=== PATIENT | male | born 1955 | race Caucasian/White ===

== ENCOUNTER → 2016-08-03 | Outpatient (CLI) | payer OTHER ==
[~2016-08-03] MED LIST: ASPI-13 PO; DUTA0.5C PO; FINA1TAB16 PO; FINA5TAB4 PO; GADOBUTROL 10 MMOL/10 ML PFS ONE; PARO40TA45 PO; ROSU5TAB PO; [UNRECOGNIZED DRUG - CODE] PO
== END | disposition home or self-care (01) ==
LOC: CFH 14:31
PROVIDERS: ATTEND Specialist
DX: G93.89 Other specified disorders of brain (principal); R90.82 White matter disease, unspecified; G31.9 Degenerative disease of nervous system, unspecified; H70.93 Unspecified mastoiditis, bilateral
CPT/HCPCS: 70553; A9585

== ENCOUNTER 2018-05-03 11:25 | Day surgery (SDC) | payer MEDICARE, OTHER ==
[~2018-05-03] VITALS: Ht 175.3 cm; Wt 104.3 kg
[~2018-05-03 11:25] MED LIST changes: -GADOBUTROL 10 MMOL/10 ML PFS ONE; -PARO40TA45 PO; +PARO40TA61 PO
[2018-05-03] MEDS ORDERED: SODIUM CHLORIDE 0.9% 1,000 ML IV SCH (11:54)
[2018-05-03 12:25] VITALS: BP 123/74
[2018-05-03] MEDS ORDERED: SODIUM BICARBONATE 4.0%, 5ML ONE (13:04)
[2018-05-03] MEDS ORDERED: LIDOCAINE-MPF 1%, 5ML ONE (13:04)
[2018-05-03 14:38] LABS: GLUCOSE, CSF 53 mg/dL (40-80); TOTAL PROTEIN,CSF 36 mg/dL (15-45)
== END 2018-05-03 17:05 | disposition home or self-care (01) ==
LOC: OUT 11:25
PROVIDERS: ATTEND Physician Assistant
DX: G35 Multiple sclerosis (principal); I10 Essential (primary) hypertension; J45.909 Unspecified asthma, uncomplicated
CPT/HCPCS: 36415; 62270; 77003; 82040; 82042; 82784; 82945; 83873; 84157; 85048; 86645; 86695; 86696; 86762; 86777; 86778; 89051; J7030

== ENCOUNTER 2018-08-31 07:57 | Inpatient (IN) | payer MEDICARE, OTHER ==
[~2018-08-31] VITALS: Ht 175.3 cm; Wt 100.2 kg
--- NOTE | 2018-08-31 08:13 | NUR ---
CONTACT WITH PT, 63 YR OLD MALE HERE WITH C/O "MOSTLY A BLADDER INFECTION, I HAD IT TREATED ONCE, BUT IT CAME RIGHT BACK, I HAVE LOST MY ABILITY TO WALK. I HAVE NOTICED IN THE PAST THAT WITH THE MS, WHEN YOU GET AN INFECTION, IT JUST CASCADES" DIDI BLAKE AT BEDSIDE TO JOSE PT
[2018-08-31] MEDS ORDERED: SODIUM CHLORIDE 0.9% 1,000ML IVBOLUS ONE (08:30)
[2018-08-31] MEDS ORDERED: SODIUM CHLORIDE FLUSH 10ML SYR IVF ONE (08:30)
[2018-08-31] MEDS ORDERED: ACETAMINOPHEN 500 MG TABLET PO ONE ×2 (08:30→21:00)
[2018-08-31] MEDS ORDERED: DILT60TA30 PO (08:39)
[2018-08-31 08:57] LABS: BASOPHILS # (AUTO) 0.02 x10^3/uL (0-0.1); BASOPHILS % (AUTO) 0 % (0-1); EOSINOPHILS % (AUTO) 0 % (1-7); LYMPHOCYTES # (AUTO) 0.85 x10^3/uL (1-3.4); LYMPHOCYTES % (AUTO) 11 % (22-44); MD NO; MEAN CORPUSCULAR HEMOGLOBIN 32.9 pg (27.5-34.5); MEAN CORPUSCULAR HGB CONC 33.9 g/dL (33.2-36.2); MEAN CORPUSCULAR VOLUME 97.1 fL (81-97); MEAN PLATELET VOLUME 8.2 fL (7.4-10.4); MONOCYTES # (AUTO) 0.66 x10^3/uL (0.2-0.8); MONOCYTES % (AUTO) 8 % (2-9); NEUTROPHILS # (AUTO) 6.39 x10^3/uL (1.8-6.8); NEUTROPHILS % (AUTO) 81 % (42-75); PLATELET COUNT 211 x10^3/uL (130-400); RED BLOOD COUNT 4.54 x10^6/uL (4.38-5.82); RED CELL DISTRIBUTION WIDTH 12.4 % (9.4-14.8)
[2018-08-31 09:09] LABS: ALANINE AMINOTRANSFERASE 23 U/L (12-78); ALBUMIN 4.2 g/dL (3.4-5.0); ANION GAP 9 mmol/L (5-15); CALCIUM 8.9 mg/dL (8.5-10.1); CHLORIDE 97 mmol/L (98-107); CREATININE 1.22 mg/dL (0.7-1.3)
[2018-08-31 09:11] LABS: ALKALINE PHOSPHATASE 82 U/L (45-117); BILIRUBIN,TOTAL 1.7 mg/dL (0.2-1.0); CREATINE KINASE, TOTAL 120 U/L (39-308); TOTAL PROTEIN 8.7 g/dL (6.4-8.2)
[2018-08-31] MEDS ORDERED: ACETAMINOPHEN 500 MG TABLET ONE (09:15)
--- NOTE | 2018-08-31 09:18 | NUR ---
HYATT CATH PLACED. PT MAYRA WELL. PT UPDATED ON POC. NS BOLUS INFUSING WITHOUT REDNESS/SWELLING. PT MEDICATED FOR TEMP ORDERED. PO FLUIDS AT BEDSIDE. NO OTHER NEEDS EXPRESSED AT THIS TIME.
[2018-08-31 09:30] LABS: CULTURE INDICATED? YES; MICROSCOPIC INDICATED
--- NOTE | 2018-08-31 09:50 | NUR ---
TASK RN: VS UPDATED IN CHART, IVF COMPLETED. RESULTS BACK, CHART UP FOR RECHECK. PATIENT SITTING COMFORTABLY IN [facility] AWAITING FURTHER ORDERS. NO ADDITIONAL NEEDS AT THIS TIME.
[2018-08-31] MEDS ORDERED: CEFTRIAXONE PMX 1GM/50ML 50 ML ONE (10:17)
--- NOTE | 2018-08-31 10:25 | NUR ---
DISCUSSED IV FLUIDS, ABX WITH DIDI BLAKE. NO FURTHER IV FLUIDS AT THIS TIME. IV ABX INFUSING. BLOOD CULTURES X2 IN LAB PROCESSING, PINK [place]MBAND IN PLACE. PT DENIES "CHILLS" AT THIS TIME. SR PER MONITOR. AUTO BP AND PULSE OX IN PLACE. DECLINED PO FLUIDS AT THIS TIME. HYATT TO DD. YELLOW CLOUDY URINE. NO NEEDS EXPRESSED AT THIS TIME.
[2018-08-31] MEDS ORDERED: CEFTRIAXONE PMX 1GM/50ML 50 ML IV ONE (10:30)
--- NOTE | 2018-08-31 11:34 | NUR ---
PT ASSISTED TO HOSPITAL BED. PT AWARE OF WAITING FOR ROOM ASSIGNMENT. HYATT TO DD. NO NEEDS EXPRESSED AT THIS TIME. CONT TO MONITOR.
[2018-08-31] MEDS ORDERED: ONDANSETRON 2MG/ML, 2ML IVPush PRN (13:30)
[2018-08-31] MEDS ORDERED: hydrALAzine 20 MG/ML, 1ML IVPush PRN (13:30)
[2018-08-31] MEDS ORDERED: ACETAMINOPHEN 325 MG TABLET PO PRN (13:30)
[2018-08-31] MEDS ORDERED: GUAIFENESIN/COD200MG-20MG/10ML LIQUID PO PRN (13:30)
[2018-08-31] MEDS ORDERED: NITROGLYCERIN 0.4 MG BOTTLE (25 TABS) SL PRN (13:30)
[2018-08-31] MEDS ORDERED: KETOROLAC 30 MG/1 ML IV PRN (13:30)
[2018-08-31] MEDS ORDERED: TRAZODONE 50MG TABLET PO PRN (13:30)
--- NOTE | 2018-08-31 13:46 | NUR ---
PT SITTING UP ON BED. NO ACUTE DISTRESS NOTED. URINE LESS CLOUDY. GOOD UOP. PT TAKING PO FLUIDS PRN. NO NEEDS EXPRESSED AT THIS TIME.
--- NOTE | 2018-08-31 13:53 | NUR ---
IV FLUIDS REQUESTED FROM PHARMACY
[2018-08-31] MEDS ORDERED: ENOXAPARIN 40 MG/0.4 ML ONE (13:59)
[2018-08-31] MEDS ORDERED: POTASSIUM CHLORIDE 20 MEQ TAB.ER.PRT ONE (13:59)
[2018-08-31] MEDS: POTASSIUM CHLORIDE 20 MEQ TAB.ER.PRT PO SCH ×2 (14:12→20:39)
[2018-08-31] MEDS: ENOXAPARIN 40 MG/0.4 ML SQ SCH (14:12)
[2018-08-31] MEDS: POTASSIUM CHLORIDE 20 MEQ in LACTATED RINGERS 1,000 ML IV SCH (14:57)
--- NOTE | 2018-08-31 15:01 | NUR ---
IV FLUIDS INFUSING ORDERED. PT PROVIDED WITH MEAL TRAY. NO C/O OFFERED. NO NEEDS EXPRESSED AT THIS TIME.
--- NOTE | 2018-08-31 16:50 | NUR ---
PT DOZING INTERMITTENTLY, AROUSES EASILY. IV FLUIDS INFUSING WITHOUT REDNESS/SWELLING. PO FLUIDS AT BEDSIDE. NO NEEDS EXPRESSED AT THIS TIME.
--- NOTE | 2018-08-31 17:25 | NUR ---
Umu enriquez in [facility] - 08/31/18 at 1725 by MEENA ATTEMPT TO CALL REPORT, RN TO RETURN CALL.
--- NOTE | 2018-08-31 17:26 | NUR ---
ATTEMPT TO CALL REPORT, RN TO RETURN CALL.
[2018-08-31] MEDS ORDERED: ACETAMINOPHEN 325 MG TABLET ONE (17:31)
--- NOTE | 2018-08-31 17:35 | NUR ---
PT MOSTLY SLEEPING, AROUSES TO NAME/TOUCH. RECHECK OF PTS TEMP, ELEVATED. PT MEDICATED WITH TYLENOL ORDERED. PT AWARE OF ROOM ASSIGNMENT.
[2018-08-31] MEDS ORDERED: CYCLOBENZAPRINE 10 MG TABLET ONE (17:39)
[2018-08-31] MEDS: CYCLOBENZAPRINE 10 MG TABLET PO PRN (17:41)
--- NOTE | 2018-08-31 18:10 | NUR ---
REPORT TO DEIRDRE ROQUE, POC DISCUSSED.
[2018-08-31 18:38] VITALS: BP 121/75
[2018-08-31 20:31] VITALS: BP 121/66
[2018-08-31] MEDS: ATORVASTATIN 20 MG TABLET PO SCH (20:39)
[2018-09-01 00:33] VITALS: BP 107/70
[2018-09-01] MEDS: POTASSIUM CHLORIDE 20 MEQ in LACTATED RINGERS 1,000 ML IV SCH (03:05)
[2018-09-01 06:50] VITALS: BP 125/71
[2018-09-01 07:49] LABS: BASOPHILS # (AUTO) 0.02 x10^3/uL (0-0.1); BASOPHILS % (AUTO) 0 % (0-1); EOSINOPHILS # (AUTO) 0.01 x10^3/uL (0-0.4); EOSINOPHILS % (AUTO) 0 % (1-7); LYMPHOCYTES # (AUTO) 0.53 x10^3/uL (1-3.4); LYMPHOCYTES % (AUTO) 11 % (22-44); MD NO; MEAN CORPUSCULAR HEMOGLOBIN 32.6 pg (27.5-34.5); MEAN CORPUSCULAR HGB CONC 33.9 g/dL (33.2-36.2); MEAN CORPUSCULAR VOLUME 96.3 fL (81-97); MEAN PLATELET VOLUME 8.1 fL (7.4-10.4); MONOCYTES # (AUTO) 0.55 x10^3/uL (0.2-0.8); MONOCYTES % (AUTO) 11 % (2-9); NEUTROPHILS % (AUTO) 78 % (42-75); PLATELET COUNT 176 x10^3/uL (130-400); RED BLOOD COUNT 3.72 x10^6/uL (4.38-5.82); RED CELL DISTRIBUTION WIDTH 12.9 % (9.4-14.8)
[2018-09-01 07:59] LABS: ANION GAP 4 mmol/L (5-15); CALCIUM 8.4 mg/dL (8.5-10.1); CHLORIDE 103 mmol/L (98-107); CREATININE 0.78 mg/dL (0.7-1.3)
[2018-09-01] MEDS ORDERED: CEFTRIAXONE PMX 1GM/50ML 50 ML IV SCH (09:00)
[2018-09-01] MEDS: DILTIAZEM 60 MG TABLET PO SCH (09:29)
[2018-09-01] MEDS: CEFTRIAXONE PMX 2GM/50ML 50 ML IV SCH (09:30)
[2018-09-01] MEDS: DUTASTERIDE 0.5 MG CAPSULE PO SCH (09:30)
[2018-09-01] MEDS: TAMSULOSIN 0.4 MG CAP.ER.24H PO SCH (09:30)
[2018-09-01] MEDS: PAROXETINE 20 MG TABLET PO SCH (09:30)
[2018-09-01 12:20] VITALS: BP 128/69
[2018-09-01] MEDS: ENOXAPARIN 40 MG/0.4 ML SQ SCH (14:55)
[2018-09-01] MEDS: LACTATED RINGERS 1,000 ML IV SCH ×2 (14:55→23:04)
[2018-09-01] MEDS: CYCLOBENZAPRINE 10 MG TABLET PO PRN ×2 (14:57→23:03)
[2018-09-01 19:27] VITALS: BP 147/76
[2018-09-02 03:53] VITALS: BP 126/79
[2018-09-02] MEDS: morphine SULFATE 10 MG/ML, 1ML IVPush PRN ×5 (04:21→22:42)
[2018-09-02 05:58] LABS: BASOPHILS # (AUTO) 0.03 x10^3/uL (0-0.1); BASOPHILS % (AUTO) 1 % (0-1); EOSINOPHILS # (AUTO) 0.03 x10^3/uL (0-0.4); EOSINOPHILS % (AUTO) 1 % (1-7); LYMPHOCYTES # (AUTO) 1.01 x10^3/uL (1-3.4); LYMPHOCYTES % (AUTO) 18 % (22-44); MD NO; MEAN CORPUSCULAR HEMOGLOBIN 33.2 pg (27.5-34.5); MEAN CORPUSCULAR HGB CONC 33.7 g/dL (33.2-36.2); MEAN CORPUSCULAR VOLUME 98.4 fL (81-97); MEAN PLATELET VOLUME 8.8 fL (7.4-10.4); MONOCYTES # (AUTO) 0.81 x10^3/uL (0.2-0.8); MONOCYTES % (AUTO) 14 % (2-9); NEUTROPHILS # (AUTO) 3.86 x10^3/uL (1.8-6.8); NEUTROPHILS % (AUTO) 67 % (42-75); PLATELET COUNT 181 x10^3/uL (130-400); RED BLOOD COUNT 3.59 x10^6/uL (4.38-5.82); RED CELL DISTRIBUTION WIDTH 12.4 % (9.4-14.8)
[2018-09-02 06:06] LABS: CHLORIDE 102 mmol/L (98-107)
[2018-09-02 06:09] LABS: ANION GAP 7 mmol/L (5-15); CALCIUM 8.3 mg/dL (8.5-10.1); CREATININE 0.75 mg/dL (0.7-1.3)
[2018-09-02 08:10] VITALS: BP 123/73
[2018-09-02] MEDS: TAMSULOSIN 0.4 MG CAP.ER.24H PO SCH (08:44)
[2018-09-02] MEDS: DUTASTERIDE 0.5 MG CAPSULE PO SCH (08:44)
[2018-09-02] MEDS: DILTIAZEM 60 MG TABLET PO SCH (08:44)
[2018-09-02] MEDS: PAROXETINE 20 MG TABLET PO SCH (08:44)
[2018-09-02] MEDS: CEFTRIAXONE PMX 2GM/50ML 50 ML IV SCH (08:45)
[2018-09-02] MEDS: LACTATED RINGERS 1,000 ML IV SCH (08:45)
[2018-09-02] MEDS ORDERED: CYCLOBENZAPRINE 10 MG TABLET PO PRN (13:30)
[2018-09-02 14:12] VITALS: BP 117/65
[2018-09-02] MEDS: ENOXAPARIN 40 MG/0.4 ML SQ SCH (14:15)
[2018-09-02 21:22] VITALS: BP 125/72
[2018-09-02] MEDS: ATORVASTATIN 20 MG TABLET PO SCH (22:42)
[2018-09-03 02:22] VITALS: BP 158/88
[2018-09-03 03:58] VITALS: BP 110/67
[2018-09-03] MEDS: morphine SULFATE 10 MG/ML, 1ML IVPush PRN (04:00)
[2018-09-03 05:43] LABS: ANION GAP 4 mmol/L (5-15); CALCIUM 8.4 mg/dL (8.5-10.1); CHLORIDE 101 mmol/L (98-107); CREATININE 0.79 mg/dL (0.7-1.3)
[2018-09-03 09:00] VITALS: BP 116/72
[2018-09-03] MEDS ORDERED: CEFD300C37 PO (09:05)
[2018-09-03] MEDS ORDERED: OXYC5TAB3 PO (09:06)
[2018-09-03] MEDS ORDERED: ACET325T14 PO (09:06)
[2018-09-03] MEDS: POTASSIUM CHLORIDE 20 MEQ TAB.ER.PRT PO SCH ×2 (09:20→12:54)
[2018-09-03] MEDS: CEFTRIAXONE PMX 2GM/50ML 50 ML IV SCH (09:20)
[2018-09-03] MEDS: PAROXETINE 20 MG TABLET PO SCH (09:21)
[2018-09-03] MEDS: DILTIAZEM 60 MG TABLET PO SCH (09:21)
[2018-09-03] MEDS: TAMSULOSIN 0.4 MG CAP.ER.24H PO SCH (09:21)
[2018-09-03] MEDS: DUTASTERIDE 0.5 MG CAPSULE PO SCH (09:21)
[2018-09-03] MEDS ORDERED: LACTULOSE 20 GM/30 ML UDC PO PRN (09:30)
[2018-09-03] MEDS ORDERED: BISACODYL 10 MG SUPP PR PRN (09:30)
[2018-09-03] MEDS ORDERED: DOCUSATE 100 MG CAPSULE PO PRN (09:30)
[2018-09-03] MEDS ORDERED: MAGNESIUM HYDROXIDE 8%, 30ML UDC PO PRN (09:30)
[2018-09-03 12:33] VITALS: BP 112/71
[2018-09-03] MEDS ORDERED: OXYcodone IR 5MG TABLET PO PRN ×2 (13:00→13:08)
[2018-09-03] MEDS ORDERED: OXYcodone IR 5MG TABLET ONE (13:06)
[2018-09-03] MEDS: ENOXAPARIN 40 MG/0.4 ML SQ SCH (13:30)
[2018-09-03] MEDS ORDERED: SENNA/DOCUSATE TABLET PO SCH (21:00)
== END 2018-09-03 14:40 | DRG 871 ==
LOC: ED 08:58 → EDIP 10:23 → 4NOR 18:24
PROVIDERS: ADMIT Internal Medicine; ATTEND Internal Medicine
PROC: 0T9B70Z Drainage of Bladder with Drainage Device, Via Natural or Artificial Opening (ICD-10-PCS; principal; 2018-08-31)
DX: A41.51 Sepsis due to Escherichia coli [E. coli] (principal); N17.0 Acute kidney failure with tubular necrosis; E87.1 Hypo-osmolality and hyponatremia; N10 Acute pyelonephritis; E86.1 Hypovolemia; E78.5 Hyperlipidemia, unspecified; E87.6 Hypokalemia; N40.0 Benign prostatic hyperplasia without lower urinary tract symptoms; F12.90 Cannabis use, unspecified, uncomplicated; G35 Multiple sclerosis; E83.39 Other disorders of phosphorus metabolism; I10 Essential (primary) hypertension; R62.7 Adult failure to thrive; Z80.41 Family history of malignant neoplasm of ovary; Z82.49 Family history of ischemic heart disease and other diseases of the circulatory system; Z87.891 Personal history of nicotine dependence; Z91.041 Radiographic dye allergy status
CPT/HCPCS: 36415; 71045; 80048; 80053; 80307; 81001; 82140; 82550; 83605; 83735; 84100; 84145; 85025; 87040; 87077; 87086; 87186; 96361; 96365; G0378; J0696; J1650; J3480; J2270; J7030; J7120

== ENCOUNTER 2019-02-22 13:22 | Day surgery (SDC) | payer MEDICARE, OTHER ==
[~2019-02-22] VITALS: Ht 175.3 cm; Wt 99.5 kg
[~2019-02-22 13:22] MED LIST changes: +ACET325T14 PO; +CEFD300C37 PO; +DILT60TA30 PO; +OXYC5TAB3 PO
[2019-02-22] MEDS ORDERED: LACTATED RINGERS 1,000 ML IV SCH (13:50)
[2019-02-22 13:57] VITALS: BP 149/87
[2019-02-22] MEDS ORDERED: NITR100C PO (14:11)
[2019-02-22] MEDS ORDERED: CHOL500045 PO (14:12)
[2019-02-22] MEDS ORDERED: ROSU10TA2 PO (14:14)
[2019-02-22] MEDS ORDERED: FLU VACC QS2019-20 36MOS UP/PF 0.5 ML IM-VACC ONE (14:30)
[2019-02-22] MEDS ORDERED: MIDAZOLAM 1 MG/ML, 2ML ONE (16:53)
[2019-02-22] MEDS ORDERED: FENTANYL PF 250 MCG/5ML ONE (16:53)
[2019-02-22] MEDS ORDERED: DEXAMETHASONE 4 MG/ML, 1ML ONE (16:54)
[2019-02-22] MEDS ORDERED: ROCURONIUM 10MG/ML,5ML ONE (16:54)
[2019-02-22] MEDS ORDERED: LIDOCAINE-MPF 2% ,5ML ONE (16:54)
[2019-02-22] MEDS ORDERED: PROPOFOL 10 MG/ML, 20ML ONE (16:54)
[2019-02-22] MEDS ORDERED: CEFAZOLIN 1,000 MG ONE ×2 (18:28)
[2019-02-22] MEDS ORDERED: FENTANYL PF 100 MCG/2ML ONE (19:11)
[2019-02-22] MEDS ORDERED: ONDANSETRON 2MG/ML, 2ML ONE (19:39)
[2019-02-22] MEDS ORDERED: SUGAMMADEX 200 MG/2 ML IVPush ONE (19:39)
[2019-02-22] MEDS ORDERED: ONDANSETRON 2MG/ML, 2ML IV PRN (20:00)
[2019-02-22] MEDS ORDERED: HALOPERIDOL 5 MG/ML IV PRN (20:00)
[2019-02-22] MEDS ORDERED: ONDANSETRON ODT 8 MG PO PRN (20:00)
[2019-02-22] MEDS ORDERED: DIAZEPAM 5 MG/ML, 2ML IVPush PRN (20:00)
[2019-02-22] MEDS ORDERED: ACETAMINOPHEN 325 MG TABLET PO PRN (20:00)
[2019-02-22] MEDS ORDERED: MIDAZOLAM 1 MG/ML, 2ML IV PRN (20:00)
[2019-02-22] MEDS ORDERED: OXYcodone 5 MG/5 ML ORAL.SOL UDC PO PRN (20:00)
[2019-02-22] MEDS ORDERED: HYDROmorphone 2 MG/ML, 1ML IVPush PRN (20:00)
[2019-02-22] MEDS ORDERED: FENTANYL PF 100 MCG/2ML IV PRN (20:00)
[2019-02-22] MEDS ORDERED: PROMETHAZINE 12.5 MG SUPP PR PRN (20:00)
[2019-02-22] MEDS ORDERED: hydrALAzine 20 MG/ML, 1ML IV PRN (20:00)
[2019-02-22] MEDS ORDERED: ALBUTEROL SULFATE 2.5 MG/3 ML NPPB PRN (20:00)
[2019-02-22] MEDS ORDERED: MEPERIDINE/PF 25MG/ML,1ML IVPush PRN (20:00)
[2019-02-22] MEDS ORDERED: EPHEDRINE 50 MG/ML, 1ML IVPush PRN (20:00)
[2019-02-22] MEDS ORDERED: LABETALOL 5MG/ML, 20ML IV PRN (20:00)
[2019-02-22] MEDS ORDERED: PROMETHAZINE 25 MG/ML, 1ML IV PRN (20:00)
== END 2019-02-22 22:05 | disposition home or self-care (01) ==
LOC: OR 13:22
PROVIDERS: ATTEND Student in an Organized Health Care Education/Training Program
DX: N40.1 Benign prostatic hyperplasia with lower urinary tract symptoms (principal); N13.8 Other obstructive and reflux uropathy; G35 Multiple sclerosis; I10 Essential (primary) hypertension; E78.5 Hyperlipidemia, unspecified; Z79.899 Other long term (current) drug therapy; Z87.891 Personal history of nicotine dependence; Z91.041 Radiographic dye allergy status; Z90.49 Acquired absence of other specified parts of digestive tract; Z80.41 Family history of malignant neoplasm of ovary; Z82.49 Family history of ischemic heart disease and other diseases of the circulatory system
CPT/HCPCS: 52648; 93005; C1769; J0690; J1100; J2250; J2405; J2704; J3010; J7120